=== PATIENT | female | born 1945 | race Caucasian/White ===

== ENCOUNTER 2017-01-16 12:08 | Emergency (ER) | payer OTHER ==
[~2017-01-16] VITALS: Ht 165.1 cm; Wt 59.5 kg
[~2017-01-16 12:08] MED LIST: BUDESUS; CLTP PO; EVS60 PO; MULT-506 PO; OMEG10007 PO
[2017-01-16 12:12] VITALS: TEMP 36.6; Ht 165.1 cm; Wt 59.5 kg
[2017-01-16] MEDS ORDERED: FLNIN/ NAE (12:31)
[2017-01-16] MEDS ORDERED: SIMV-150 PO (12:31)
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
[2017-01-16] MEDS ORDERED: ACETAMINOPHEN 500 MG TAB PO STA (14:04)
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
[2017-01-16 14:50] VITALS: BP 162/75; PULSE 55; O2SAT 100
== END 2017-01-16 14:48 | disposition home or self-care (01) ==
LOC: C.EDB 12:10 → C.EDD 14:48
DX: S09.90XA Unspecified injury of head, initial encounter (principal); V19.3XXA Pedal cyclist (driver) (passenger) injured in unspecified nontraffic accident, initial encounter; R42 Dizziness and giddiness; R11.0 Nausea; H57.8 Other specified disorders of eye and adnexa; Z98.49 Cataract extraction status, unspecified eye; Z88.0 Allergy status to penicillin; Z88.6 Allergy status to analgesic agent; Z83.3 Family history of diabetes mellitus; Z82.49 Family history of ischemic heart disease and other diseases of the circulatory system

== ENCOUNTER → 2017-03-23 | Day surgery (SDC) | payer OTHER ==
[2017-03-15 11:35] VITALS: Ht 157.5 cm; Wt 59.1 kg
[~2017-03-23] VITALS: Ht 157.5 cm; Wt 59.1 kg
[~2017-03-23] MED LIST changes: -BUDESUS; +CALC600T9 PO; -CLTP PO; -EVS60 PO; +FLNIN/ NAE; +LIDOCAINE HCL 2% 2 ML VIAL (20MG/ML) ONE; +PROPOFOL IV EMULSION 10 MG/ML 20 ML VIAL IV ONE; +SIMV-150 PO; +SODIUM CHLORIDE 0.9% 500ML 500 ML IV ONE
--- NOTE | 2017-03-23 14:02 | Endo History and Physical ---
History & Physical Date of Service: Mar 23, 2017. Chief Complaint: Nausea and Epigastric pain Referring Physician: Mainali History of Present Illness 71 yo CF who presents for EGD secondary to nausea and epigastric abdominal pain. Past Medical History Gastrointestinal Disorder Past Surgical History Hx Cardiac Surgery: No Hx Internal Defibrillator: No Hx Pacemaker: No Hx Abdominal Surgery: No Hx of Implantable Prosthesis: No Hx Post-Op Nausea and Vomiting: No Hx Cancer Surgery: Yes (CHEST EXCISION) Hx Thoracic Surgery: No Hx Orthopedic: No Hx Urinary Tract Surgery: No Family History Polyp Social History Smoking Status: Never Smoker Hx Substance Use: No Hx Alcohol Use: Yes (rare) Allergies Coded Allergies: Penicillins (Verified Allergy, Mild, PEELING OF HANDS, 03/23/17) Aspirin (Verified Allergy, Unknown, swelling of lips, 03/23/17) Ibuprofen (Verified Allergy, Unknown, swelling of lips., 03/23/17) Current Medications Reported Home Medications Medications Dose Route/Sig Max Daily Dose Days Date Category [place]-3 (Fish Oil) 1 Ea Cap 1 Cap PO QAM 03/15/17 Reported Calcium + D (Calcium Carbonate-Vitamin D) 1 Tab Tab 1 Tab PO QAM 03/15/17 Reported Multivitamin (Multivitamins) Tab 1 Tab PO QAM 03/15/17 Reported Fluticasone Propionate 120 Sprays/6000 Mcg Inha 1 [place] GUTIERREZ DAILY 01/16/17 Reported Simvastatin 10 Mg Tab 10 Mg PO HS 01/16/17 Reported Vital Signs Weight (Kilograms): 59.09 Height (Feet): 5 Height (Inches): 2 Physical Exam General Appearance: WD/WN, no apparent distress Respiratory/Chest: Auscultation: breath sounds normal Cardiovascular: Heart Auscultation: RRR Abdomen: Bowel Sounds: normal Inspection & Palpation: soft, non-distended, no tenderness, guarding & rebound Assessment and Plan Assessment: 71 yo CF who presents for EGD secondary to nausea and epigastric abdominal pain. Plan: Proceed with EGD.
--- NOTE | 2017-03-23 14:46 | GI REPORT ---
Procedure Date: 03/23/2017 2:25 PM Procedure: Upper GI endoscopy Indications: Dysphagia Medicines: Monitored Anesthesia Care Complications: No immediate complications. Estimated Blood Loss: Estimated blood loss: none. Procedure: Pre-Anesthesia Assessment: - Prior to the procedure, a History and Physical was performed, and patient medications and allergies were reviewed. The patient's tolerance of previous anesthesia was also reviewed. The risks and benefits of the procedure and the sedation options and risks were discussed with the patient. All questions were answered, and informed consent was obtained. Prior Anticoagulants: The patient has taken no previous anticoagulant or antiplatelet agents. ASA Grade Assessment: II - A patient with mild systemic disease. After reviewing the risks and benefits, the patient was deemed in satisfactory condition to undergo the procedure. After obtaining informed consent, the endoscope was passed under direct vision. Throughout the procedure, the patient's blood pressure, pulse, and oxygen saturations were monitored continuously. The scope was introduced through the mouth, and advanced to the second part of duodenum. The upper GI endoscopy was accomplished without difficulty. The patient tolerated the procedure well. Findings: No endoscopic abnormality was evident in the esophagus to explain the patient's complaint of dysphagia. It was decided, however, to proceed with dilation at the gastroesophageal junction. A TTS dilator was passed through the scope. Dilation with an 18-19-20 mm balloon (to a maximum balloon size of 20 mm) dilator was performed. The dilation site was examined and showed mild improvement in luminal narrowing. The stomach was normal. The examined duodenum was normal. Impression: - No endoscopic esophageal abnormality to explain patient's dysphagia. Esophagus dilated. Dilated. - Normal stomach. - Normal examined duodenum. - No specimens collected. Recommendation: - Resume previous diet. - Continue present medications. - Return to primary care physician as previously scheduled. Grabiel Ho DO 03/23/2017 2:46:31 PM This report has been signed electronically. Note Initiated On: 03/23/2017 2:25 PM I attest to the content of the Intraoperative Record and orders documented therein, exceptions below
--- NOTE | 2017-03-23 14:47 | Discharge Instructions ---
Endoscopy Patient Instructions Date / Procedure(s) Performed Mar 23, 2017. EGD Allergy Information Coded Allergies: Penicillins (Verified Allergy, Mild, PEELING OF HANDS, 03/23/17) Aspirin (Verified Allergy, Unknown, swelling of lips, 03/23/17) Ibuprofen (Verified Allergy, Unknown, swelling of lips., 03/23/17) Discharge Date / Findings Mar 23, 2017. Esophageal dilation to 20mm Medication Instructions OK to resume all medications today as prescribed Reported Home Medications Medications Dose Route/Sig Max Daily Dose Days Date Category [place]-3 (Fish Oil) 1 Ea Cap 1 Cap PO QAM 03/15/17 Reported Calcium + D (Calcium Carbonate-Vitamin D) 1 Tab Tab 1 Tab PO QAM 03/15/17 Reported Multivitamin (Multivitamins) Tab 1 Tab PO QAM 03/15/17 Reported Fluticasone Propionate 120 Sprays/6000 Mcg Inha 1 [place] GUTIERREZ DAILY 01/16/17 Reported Simvastatin 10 Mg Tab 10 Mg PO HS 01/16/17 Reported Provider Instructions Activity Restrictions - No exercising or heavy lifting for 24 hours. - Do not drink alcohol the day of the procedure. - Do not drive a car or operate machinery until the day after the procedure. - Do not make any important decisions or sign important papers in 24 hours after the procedure. Following Day: - Return to full activity which may include returning to work/school. Diet Start your diet with liquids and light foods (jello, soup, juice, toast). Then eat your usual diet if not nauseated. Treatment For Common After Affects For mild abdominal pain, bloating, or excessive gas: - Rest - Eat lightly - Lie on right side Follow-Up Information Follow-up with Dr. Martel as scheduled Anesthesia Information What You Should Know You have had a procedure that required some medicine to reduce anxiety and discomfort. This treatment is called moderate sedation. After receiving the treatment, you may be sleepy, but you will be able to breathe on your own. The effects of the treatment may last for several hours. Follow these instructions along with Activity/Diet recommendations noted above: * Do NOT do anything where dizziness or clumsiness would be dangerous. * Rest quietly at home today, then you can be up and about tomorrow. * Have a responsible person stay with you the rest of today. * You may have had an I.V. today. If so, you may take the dressing off later today. Recommendations Call your doctor if: * Trouble breathing * Continuous vomiting for more than 24 hours * Temperature above 101 degrees * Severe abdominal pain or bloating * Pain not relieved by pain medicine ordered * There is increased drainage or redness from any incision * A large amount of rectal bleeding greater than 2-3 tablespoons. (If you had a polyp/s removed or have hemorrhoids, a small amount of blood - from the rectum is to be expected.) * You have any unanswered questions or concerns. IN THE EVENT OF A SERIOUS EMERGENCY, GO TO THE NEAREST EMERGENCY ROOM Your discharge instructions were prepared by provider Grabiel Ho. Patient Instructions Signature Page Sonal Grant Patient (or Guardian) Signature/Date: I have read and understand the instructions given to me by my caregivers. Caregiver/RN/Doctor Signature/Date: The above-named patient and/or guardian has received patient instructions on this date. + Original Patient Signature Page (only) stays with chart. Please make copy for patient.
[2017-03-23 15:18] VITALS: BP 117/80; PULSE 56; O2SAT 99
--- NOTE | 2017-03-23 15:21 | Anesthesiology Progress Note ---
Anesthesia Post Op Note Date & Time Mar 23, 2017 at 15:20 Vital Signs Pain Intensity: 0 Vital Signs Past 12 Hours Date Time Temp Pulse Resp B/P (MAP) Pulse Ox O2 Delivery O2 Flow Rate FiO2 03/23/17 15:18 56 18 117/80 (92) 99 Room Air 03/23/17 15:04 57 18 92/71 (78) 97 Room Air 03/23/17 14:50 60 18 118/60 (79) 98 Room Air 03/23/17 14:16 36.9 56 18 124/63 (83) 99 Room Air Notes Mental Status: alert / awake / arousable, participated in evaluation Pt Amnestic to Procedure: Yes Nausea / Vomiting: adequately controlled Pain: adequately controlled Airway Patency, RR, SpO2: stable & adequate BP & HR: stable & adequate Hydration State: stable & adequate Anesthetic Complications: no major complications apparent
== END | disposition home or self-care (01) ==
LOC: C.GI 13:31
PROVIDERS: ATTEND Internal Medicine
DX: R13.10 Dysphagia, unspecified (principal); R11.0 Nausea; R10.13 Epigastric pain; I10 Essential (primary) hypertension; Z98.890 Other specified postprocedural states; M19.90 Unspecified osteoarthritis, unspecified site; Z88.0 Allergy status to penicillin; Z79.899 Other long term (current) drug therapy; Z85.9 Personal history of malignant neoplasm, unspecified; Z98.41 Cataract extraction status, right eye; Z98.42 Cataract extraction status, left eye; Z83.71 Family history of colonic polyps